=== PATIENT | female | born 1995 | race Caucasian/White ===

== ENCOUNTER 2022-08-26 18:35 | Emergency (ER) | payer OTHER, SELFPAY ==
[2022-08-26 18:58] VITALS: BP 124/81; PULSE 90; RESP 16; TEMP 36.7; O2SAT 99; BMI 25.2
--- NOTE | 2022-08-26 19:02 | DI.RAD.S_ITS ---
PROCEDURE: XR ANKLE RT MIN 3V INDICATIONS: injury to ankle TECHNIQUE: 3 views of the ankle were acquired. COMPARISON: None. FINDINGS: Bones: There is a mildly displaced fracture of the medial malleolus extending to the ankle mortise which demonstrates mild widening medially and anteriorly. A mildly displaced fracture of the posterior malleolus is also demonstrated. There is a mildly comminuted fracture of the distal fibular shaft. Soft tissues: There is a small tibiotalar joint effusion. Achilles tendon appears normal. IMPRESSION: 1. Fractures of the medial and posterior malleoli with associated widening of the ankle mortise anteromedially. 2. Mildly comminuted fracture of the distal fibular shaft. Dictated by: Kt Gu M.D. on 08/26/2022 at 20:20 Approved by: Kt Gu M.D. on 08/26/2022 at 20:22
--- NOTE | 2022-08-26 21:02 | ED_ITS ---
HPI - Extremity Injury (Lower) General Chief Complaint: Extremity Injury, Lower Stated Complaint: R Ankle pain, popping in and out Time Seen by Provider: 08/26/22 20:58 Source: patient and family Mode of arrival: Wheelchair History of Present Illness HPI Narrative: Patient is a 26-year-old female who is here for evaluation of a right ankle injury. She states that earlier this evening she was skateboarding. States she landed on her right foot awkwardly. She states that she feels like it is unstable and moving in and out. Is unable to stand on it because of discomfort. No other injuries from the event. No prior injuries to her right ankle. Related Data Previous Rx's Medication Instructions Recorded hydrocodone 5 mg-acetaminophen 325 1 tab PO Q4-6H PRN pain #20 tabs 08/26/22 mg tablet Allergies Allergy/AdvReac Type Severity Reaction Status Date / Time No Known Allergies Allergy Verified 08/26/22 21:10 Review of Systems Musculoskeletal Musculoskeletal: Reports system reviewed and no additional complaints, except as documented Integumentary/Breasts Skin/Breast: Reports system reviewed and no additional complaints, except as documented Neurologic Neurologic: Reports system reviewed and no additional complaints, except as documented Patient History Social History Smoking Status: Never smoker Smoking Status: Never smoker Substance Use Type: marijuana Exam Initial Vital Signs Initial Vital Signs: Vital Signs Temperature 98.1 F 08/26/22 18:58 Pulse Rate 90 08/26/22 18:58 Respiratory Rate 16 08/26/22 18:58 Blood Pressure 124/81 08/26/22 18:58 Pulse Oximetry 99 08/26/22 18:58 Oxygen Delivery Method Room Air 08/26/22 18:58 Cardio Pulses: dorsalis pedis present on the right Skin General: no rashes or lesions noted Neuro Sensory Exam: no sensory deficits noted Extrem Other: Discomfort with palpation of the right ankle. No inability to move. Mild swelling. Procedures Orthopedic Splinting/Casting Injury #1: Side: right Lower Extremity Injury Location: ankle Lower Extremity Immobilizer: posterior splint and stirrup splint Other Orthopedic Equipment: crutches Post splinting neuro exam: no change Post splinting vascular exam: no change Placed by: Nursing Course Orders Ordered: ED Orders 08/26/22 19:02 XR ankle RT min 3V Stat Discontinued Medications Hydrocodone Bitart/Acetaminophen (Hydrocodone/Acet 5/325 Tablet) 1 tab PO NOW ONE Stop: 08/26/22 21:03 Last Admin: 08/26/22 21:13 Dose: 1 tab Documented By: Hydrocodone Bitart/Acetaminophen (Hydrocodone/Acet 5/325 Prepack) 1 bottle MISC SEEINSTR ONE Stop: 08/26/22 21:03 Last Admin: 08/26/22 21:14 Dose: 1 bottle Documented By: Vital Signs Vital signs: Vital Signs - 8 hr 08/26/22 22:07 Pulse Rate 94 H Respiratory Rate 16 Blood Pressure 129/68 Pulse Oximetry 97 Oxygen Delivery Method Room Air MDM - Extremity Injury (Lower) Imaging Data Extremity x-ray #1: Radiologist's Impression: PROCEDURE:? XR ANKLE RT MIN 3V ? INDICATIONS:? injury to ankle ? TECHNIQUE:? 3 views of the ankle were acquired.? ? COMPARISON:? None. ? FINDINGS:? ? Bones:? There is a mildly displaced fracture of the medial malleolus extending to the ankle mortise which demonstrates mild widening medially and anteriorly.? A mildly displaced fracture of the posterior malleolus is also demonstrated.? There is a mildly comminuted fracture of the distal fibular shaft. ? Soft tissues:? There is a small tibiotalar joint effusion.? Achilles tendon appears normal.? ? ? IMPRESSION:? ? 1. Fractures of the medial and posterior malleoli with associated widening of the ankle mortise anteromedially. ? 2. Mildly comminuted fracture of the distal fibular shaft. [facility] Narrative Medical decision making narrative: Patient is neurovascularly intact. X-ray does show right ankle fracture. She was splinted as described above. Was made nonweightbearing. Will provide pain control. Instructed that she needs to follow-up with orthopedic surgery. She was given return precautions and follow-up instructions. She expressed u nderstanding and agreement. Discharge Plan Departure Patient Disposition: Home Clinical Impression: Ankle fracture, right Instructions: How to Use Crutches, DI for Ankle Fracture, How to Take Care of Your Splint Activity Restrictions/Additional Instructions: The splint that was placed today does need to be treated like a cast. You need to keep it on and keep it clean and keep it dry. Do not walk on your right leg. Use the crutches. You are going to need follow-up with orthopedic surgery. You can contact the orthopedic surgeon the number provided below for follow-up here locally or you can contact an orthopedic surgeon closer to your [place] and [place]. Return to the emergency department for new or worsening symptoms. Prescriptions: New hydrocodone-acetaminophen 5-325 mg tablet 1 tab PO Q4-6H PRN (Reason: pain) Qty: 20 0RF Referrals: Betty Guerra MD [Physician] - Miscellaneous,MD Manuel [Primary Care Provider] - Stand Alone Forms: Patient Portal/API
[2022-08-26] MEDS: HYDROCODONE/ACET 5/325 TABLET 1 TAB PO (21:13)
[2022-08-26] MEDS: HYDROCODONE/ACET 5/325 PREPACK 1 BOTTLE MISC (21:14)
[2022-08-26 22:07] VITALS: BP 129/68; PULSE 94; RESP 16; O2SAT 97
== END 2022-08-26 22:08 | disposition home or self-care (01) ==
PROVIDERS: Emergency Provider Emergency Medicine
DX: S82.841A Displaced bimalleolar fracture of right lower leg, initial encounter for closed fracture (principal); V00.131A Fall from skateboard, initial encounter; Y93.51 Activity, roller skating (inline) and skateboarding
CPT/HCPCS: 29515; 73610; 99284